=== PATIENT | female | born 1990 | race Caucasian/White ===

== ENCOUNTER 2023-07-30 08:17 | Emergency (ER) | payer MEDICAID, OTHER ==
[~2023-07-30] VITALS: Ht 165.1 cm; Wt 86.3 kg
[2023-07-30 08:40] LABS: Basophils # (auto) 0 10 ^3/uL (0-0.2); Basophils % (auto) 0.5 % (0.0-2.0); Eosinophils # (auto) 0 10 ^3/uL (0-0.8); Eosinophils % (auto) 0.9 % (0.0-7.0); Hematocrit 44.6 % (36.0-46.0); Hemoglobin 14.6 g/dL (12.2-16.2); Lymphocytes # (auto) 1.5 10 ^3/uL (0.4-5.4); Lymphocytes % (auto) 28.9 % (10.0-50.0); Mean Corpuscular Hemoglobin 29.8 pg (28.0-32.0); Mean Corpuscular Hgb Conc. 32.6 g/dL (32.0-36.0); Mean Corpuscular Volume 91.3 fL (80.0-100.0); Monocytes # (auto) 0.3 10 ^3/uL (0-1.3); Monocytes % (auto) 5.5 % (0.0-12.0); Neutrophils # (auto) 3.4 10 ^3/uL (1.6-8.6); Neutrophils % (auto) 64.2 % (37.0-80.0); Red Blood Cells 4.89 10^6/uL (4.0-5.20); Red Cell Distribution Width 14.1 % (11.8-14.3); White Blood Cell 5.3 10^3/uL (4.4-10.8)
[2023-07-30 08:47] LABS: Chloride 106 mmol/L (98-107); Potassium 4.1 mmol/L (3.5-5.1); Sodium 138 mmol/L (136-145)
[2023-07-30 08:48] LABS: Anion Gap 7 (5-15); Carbon Dioxide 25 mmol/L (20-30)
[2023-07-30 08:49] LABS: Calcium 9.7 mg/dL (8.5-10.1)
[2023-07-30] MEDS: HYDROmorphone HCL 2 MG/ML VL/or syr IM ONE (08:51)
[2023-07-30] MEDS: ONDANSETRON HCL 4 MG/2 ML VIAL IM ONE (08:52)
[2023-07-30 08:53] LABS: Glucose 98 mg/dL (74-106)
[2023-07-30 08:54] LABS: Blood Urea Nitrogen 13 mg/dL (9-23)
[2023-07-30] MEDS ORDERED: IBU600T PO (10:40)
[2023-07-30 10:47] VITALS: BP 148/92; PULSE 88; RESP 16; TEMP 98.7; O2SAT 97
== END 2023-07-30 10:53 | disposition home or self-care (01) ==
LOC: EDBD 08:17 → ER 08:17
DX: R07.89 Other chest pain (principal); Z79.899 Other long term (current) drug therapy
CPT/HCPCS: 36415; 71111; 80048; 85025; 93005; 96372; 99285; J1170; J2405